=== PATIENT | male | born 1990 | race Caucasian/White ===

== ENCOUNTER 2020-02-15 09:48 | Emergency (ER) | payer OTHER ==
--- NOTE | 2020-02-15 09:57 | ED Physician Documentation ---
PD HPI NVD - Stated complaint Stated Complaint: FEVER, N/V - History obtained from History obtained from: Patient - History of Present Illness Timing - onset: Last night Timing - duration: Hours (6-8) Timing - details: Abrupt onset (had onset of fever, chills, nausea and vomited/diarrhea last night. V/D x 2 and continued nausea. Feeling improving this morning but still general malaise. Went to [facility] and referred to ER.) Associated symptoms: Fever, Loss of appetite Contributing factors: Sick contact (wie with similar 3 days ago, lasted a day.) Improved by: No: Vomiting Worsened by: Eating Similar symptoms before: Has not had sx before Recently seen: Not recently seen Review of Systems Constitutional: reports: Fever, Chills, Myalgias Nose: denies: Rhinorrhea / runny nose, Congestion Throat: denies: Sore throat Respiratory: denies: Cough GI: reports: Nausea, Vomiting, Diarrhea. denies: Abdominal Pain Skin: denies: Rash Neurologic: reports: Generalized weakness. denies: Near syncope, Altered mental status, Headache PD PAST MEDICAL HISTORY - Past Medical History Cardiovascular: None Respiratory: None GI: None - Present Medications Home Medications: Ambulatory Orders Medication Instructions Recorded Confirmed Omeprazole 1 tab DAILY 02/15/20 02/15/20 Ondansetron Odt [Zofran] 4 mg TL Q6H PRN #10 tablet 02/15/20 - Allergies Allergies/Adverse Reactions: Allergies Allergy/AdvReac Type Severity Reaction Status Date / Time No Known Drug Allergies Allergy Verified 02/15/20 10:04 PD ED PE NORMAL - Vitals Vital signs reviewed: Yes - General General: Alert and oriented X 3, No acute distress, Well developed/nourished - HEENT HEENT: Pharynx benign - Neck Neck: Supple, no meningeal sign, No adenopathy - Cardiac Cardiac: RRR, No murmur - Respiratory Respiratory: Clear bilaterally - Abdomen Abdomen: Normal bowel sounds, Soft, Non tender, Non distended - Derm Derm: Normal color, Warm and dry - Neuro Neuro: Alert and oriented X 3, No motor deficit, Normal speech Results - Vitals Vitals: Vital Signs - 24 hr 02/15/20 02/15/20 10:00 11:19 Temperature 98.7 C H 36.6 C Heart Rate 92 74 Respiratory 16 16 Rate Blood Pressure 124/78 110/65 O2 Saturation 99 98 Oxygen O2 Source Room air PD MEDICAL DECISION MAKING - ED course Complexity details: considered differential (Sounds like viral GE. NO URI symptoms. Improving now and does not seem to need IV fluids.), d/w patient Departure - Departure Disposition: 01 Home, Self Care Clinical Impression: Nausea vomiting and diarrhea Condition: Stable Record reviewed to determine appropriate education?: Yes Instructions: ED Diet Vomiting Diarrhea Follow-Up: [facility] [Provider Group] Prescriptions: Ondansetron Odt [Zofran] 4 mg TL Q6H PRN #10 tablet PRN Reason: Nausea / Vomiting Comments: Home and rest today and tomorrow if still not well. This sounds more like an intestinal virus and typically will be ill for a day or 2. I wrote a prescription for some nausea medicine called ondansetron if you need it. Otherwise just bland food and fluids today and progress diet as able. Tylenol if needed for aches or feverish. I would anticipate improvement through the day today and into tomorrow. Forms: Activity restrictions Discharge Date/Time: 02/15/20 11:21
[2020-02-15] MEDS ORDERED: ACETAMINOPHEN 325 MG TABLET PO STA (10:49)
[2020-02-15] MEDS ORDERED: ONDANSETRON ODT 4 MG TABLET TL STA (10:49)
[2020-02-15 11:21] VITALS: BP 110/65
== END 2020-02-15 11:21 | disposition home or self-care (01) ==
LOC: ED 09:48
DX: R11.2 Nausea with vomiting, unspecified (principal); R19.7 Diarrhea, unspecified
CPT/HCPCS: 99282; 99284; A9270; Q0162